=== PATIENT | female | born 1975 | race Caucasian/White ===

== ENCOUNTER 2024-04-15 22:55 | Emergency (ER) | payer BC ==
[2024-04-15] MEDS: Lidocaine 1% 5 ML VIAL INJECT ONE (23:15)
[2024-04-15] MEDS: Lidocaine 1% 5 ML VIAL ONE (23:17)
== END 2024-04-15 23:48 | disposition home or self-care (01) ==
LOC: KA.ED 22:55
DX: S01.511A Laceration without foreign body of lip, initial encounter (principal); W22.8XXA Striking against or struck by other objects, initial encounter
CPT/HCPCS: 12011; 99282; J3490